=== PATIENT | male | born 1995 | race Caucasian/White ===

== ENCOUNTER 2020-03-27 11:45 | Emergency (ER) | payer OTHER, SELFPAY ==
[2020-03-27 11:55] VITALS: BP 138/95; PULSE 89; RESP 17; TEMP 37.3; O2SAT 96; BMI 36.8
--- NOTE | 2020-03-27 12:04 | ED.GENADULT ---
HPI - General Adult General Chief complaint: General Medical Stated complaint: ?STD Time Seen by Provider: 03/27/20 12:03 History of Present Illness HPI narrative: Patient has 2 complaints, 1 is a mild cough for 3 days without fever shortness of breath chills or sputum Second complaint is he has multiple sexual partners and wants to be tested for STDs but denies any symptoms, denies dysuria, sores, discharge and says he is not aware of any partner who is positive for any sexually transmitted disease Related Data Allergies Allergy/AdvReac Type Severity Reaction Status Date / Time No Known Allergies Allergy Verified 03/27/20 11:58 Review of Systems Review of Systems: Review of systems is positive for cough There is no shortness breath no fever no chills no sputum no sore throat no neck pain no chest pain no abdominal pain no nausea no vomiting no calf pain no leg swelling There is no dysuria, no frequency no burning with urination no discharge no genital lesions or sores no testicular swelling Yes all other systems are reviewed and are negative [facility] Past Medical History Source: nursing notes reviewed Medical History (Updated 03/27/20 @ 12:16 by BLANCA Martinez) No known health problems Social History Social History Advance Directives: No Advance Directives Information Provided: No Physical Exam Vital Signs: Vital Signs: Vital Signs Temp Pulse Resp BP Pulse Ox 03/27/20 11:55 99.1 F 89 17 138/95 H 96 Body Mass Index 36.8 General appearance is A&O x3, no acute distress Neck is supple Respiratory no acute respiratory distress The chest is clear to auscultation bilaterally with full symmetrical equal breath sounds, no adventitious sounds The heart is rate and rhythm regular with no murmurs Abdomen soft nontender Genital exam was deferred as he is asymptomatic Skin no rash Neuro no focal deficit Course Course Course Narrative: Patient was swabbed for COVID due to his cough and was tested for GC chlamydia and was advised to follow with clinic for HIV and any further testing Discharge Plan Discharge Clinical Impression: Acute viral syndrome Patient Disposition: Home, Self-Care Additional Instructions: We will call you with COVID testing results in 1-3 days Return any time any worse condition or concerns We will call you if gonorrhea or chlamydia tests are positive We advise follow with [facility] for further testing and HIV testing Interventions: ED Discharge Assessment Last Done: 03/27/20 12:40 Discharge Date/Time: 03/27/20 12:40
--- NOTE | 2020-03-27 12:10 | ED.GENADULT ---
HPI - General Adult General Chief complaint: General Medical Stated complaint: ?STD Time Seen by Provider: 03/27/20 12:03 History of Present Illness HPI narrative: Patient is here for 2 reasons 1st reason is of cough that started 3 days ago and is mild dry no sputum no shortness of breath no fever no chills Second complaint is STD screening test as he has had multiple partners and is concerned he may have been exposed to an STD but he has no symptoms and is not aware of any partner having an STD MD complaint: First complaint is cough for 3 days, 2nd complaint is wants STD testing Related Data Allergies Allergy/AdvReac Type Severity Reaction Status Date / Time No Known Allergies Allergy Verified 03/27/20 11:58 Review of Systems Review of Systems: Review of systems is positive for a mild cough There is no sputum no shortness of breath no chest pain no difficulty breathing no leg swelling no calf pain no abdominal pain no burning with urination no urinary symptoms no discharge no testicular swelling, no rash no sores no lesions Yes all other systems are reviewed and are negative [facility] Past Medical History Source: nursing notes reviewed Medical History (Updated 03/27/20 @ 12:16 by BLANCA Martinez) No known health problems Social History Social History Advance Directives: No Advance Directives Information Provided: No Physical Exam Vital Signs: Vital Signs: Vital Signs Temp Pulse Resp BP Pulse Ox 03/27/20 11:55 99.1 F 89 17 138/95 H 96 Body Mass Index 36.8 Patient is well appearing comfortable and in no distress Neck is supple Chest is CTA bilaterally, with full equal symmetrical breath sounds The heart no murmurs The abdomen soft nontender Genital exam was deferred Extremities full range of motion times for No rashes Course Course Course Narrative: COVID testing was done due to the cough and GC chlamydia testing was done as a screen and patient is advised to follow with [facility] for HIV and any further STD testing Discharge Plan Discharge Clinical Impression: Acute viral syndrome Patient Disposition: Home, Self-Care Additional Instructions: We will call you with COVID testing results in 1-3 days Return any time any worse condition or concerns We will call you if gonorrhea or chlamydia tests are positive We advise follow with [facility] for further testing and HIV testing Interventions: ED Discharge Assessment Last Done: 03/27/20 12:40 Discharge Date/Time: 03/27/20 12:40
[2020-03-27 15:29] LABS: CT PCR NOT DETECTED (Not Detect.)
[2020-03-27 15:30] LABS: NG PCR NOT DETECTED (Not Detect.)
== END 2020-03-27 12:40 | disposition home or self-care (01) ==
PROVIDERS: Physician Assistant Medical; Emergency Provider Emergency Medicine
DX: R05 Cough (principal); R50.9 Fever, unspecified; Z20.2 Contact with and (suspected) exposure to infections with a predominantly sexual mode of transmission; Z11.59 Encounter for screening for other viral diseases
CPT/HCPCS: 87491; 87591; 99283; U0003

== ENCOUNTER 2023-01-19 13:35 | Emergency (ER) | payer OTHER, SELFPAY ==
--- NOTE | ~2023-01-19 | XR_ITS ---
EXAMINATION: XR HAND, RIGHT CLINICAL INFORMATION: Laceration COMPARISON: None available. TECHNIQUE: PA, lateral, and oblique views of the right hand. FINDINGS: Bone alignment is normal. No acute fracture or dislocation. There may be old trauma to the base of the fifth metacarpal bone. Soft tissue foreign bodies adjacent to the base of the thumb/first webspace, largest measuring 2 x 5 mm. XR/XR hand RT min 3V IMPRESSION: Soft tissue foreign bodies at the base of the thumb/first web space, largest measuring 2 x 5 mm.
--- NOTE | ~2023-01-19 | XR_ITS ---
EXAMINATION: XR HAND, RIGHT CLINICAL INFORMATION: Concern for a foreign body. COMPARISON: None available. TECHNIQUE: PA, lateral, and oblique views of the right hand. FINDINGS: Linear radiopacity which is likely a foreign body in the soft tissues at the interspace between the thumb and the index finger just deep to the skin line. This measures 0.7 cm in length by about 1 mm in width. No acute osseous abnormality. Bone and joint are normal. Normal variant of negative ulnar variance. The ulna is shorter than the radius by about 3 mm. No impaction changes of the radial ulnar joint. XR/XR hand RT 2V IMPRESSION: 1. Linear radiopacity likely foreign body at the interspace between the thumb and index finger. 2. No acute osseous abnormality. 3. Negative ulnar variance.
--- NOTE | 2023-01-19 13:39 | ED.UPPEXIN ---
HPI - Extremity Injury (Upper) General Chief Complaint: Wound/Laceration Stated Complaint: DEEP LAC TO R HAND Time Seen by Provider: 01/19/23 13:38 Source: patient and EMS Mode of arrival: EMS Limitations: no limitations History of Present Illness HPI narrative: 27 yo right hand dominant male presents to the ER for evaluation of a deep laceration to his right hand sustained at work just [employer]. He went to go open a door, pushed against the glass and his hand went through the glass causing a deep laceration to the web space of the thumb and 1st digit. He immediately applied pressure with a bandage for bleeding. EMS was called. They report exposed fatty tissue and a deep laceration. He has full ROM of the thumb and 1st digit. No numbness or tingling. MD complaint: injury to: right and hand Onset (ago): minute(s) Other Extremity Injury: right: hand Other injuries: none Handedness: right Place: work Severity: moderate Relieving factors: immobilization Exacerbating factors: movement of extremity Context: direct blow Associated symptoms: denies other symptoms Treatments prior to arrival: bandage Related Data Previous Rx's Medication Instructions Recorded hydrocodone 5 mg-acetaminophen 325 2 tab PO TID PRN severe pain 01/19/23 mg tablet (scale score 7-10) #5 tabs ibuprofen 600 mg tablet 600 mg PO Q8H PRN pain #14 tabs 01/19/23 Allergies Allergy/AdvReac Type Severity Reaction Status Date / Time No Known Allergies Allergy Verified 03/27/20 11:58 Review of Systems Review of Systems: Yes all other systems are reviewed and are negative [facility] Past Medical History Medical History (Updated 01/19/23 @ 16:07 by BLANCA Hill) No known health problems Social History Social History Advance Directives: No Advance Directives Information Provided: No Physical Exam Vital Signs: Vital Signs: Last Vital Signs Temp 98 F 01/19/23 13:40 Pulse 81 01/19/23 13:40 Resp 19 01/19/23 13:40 BP 114/73 01/19/23 13:40 Pulse Ox 98 01/19/23 13:40 O2 Del Method Room Air 01/19/23 13:40 BMI result Body Mass Index 38.9 Appearance: Alert. Oriented X3. No acute distress. HEENT: normal inspection CVS: Normal heart rate and rhythm. Pulses normal. Respiratory: No respiratory distress. Skin: Skin warm and dry. Normal skin color. Normal skin turgor. No rashes. Extremities: right hand with a deep laceration of the web space of the thumb and 1st digit, approx 6 cm. exposed adipose tissue with oozing. normal thumb to finger adduction. normal ROM of the thumb and 1st digit. no visible tendon Neuro: Oriented X 3. No motor deficit. No sensory deficit. Medical Decision Making Medical Decision Making [facility] [place] Narrative: 27 y/o right hand Dominant male presents to the ER for evaluation of a deep in complex laceration of his right hand involving the webspace between the thumb and 1st digit. Active oozing on arrival. Fortunately does have full range of motion of the digits and tendons do not seem to be involved. No sensory deficits. X-ray shows small glass foreign body superficially. Wound was irrigated extensively with saline, no palpable or visible foreign body visualized. Wound required complex repair with absorbable sutures as well as 13 simple interrupted sutures. Unfortunately retained foreign body remained after extensive irrigation. Patient will be placed on prophylactic antibiotics. He will follow-up with orthopedics/hand. Pain control and wound care discussed with the patient. Dry sterile dressing applied. Stable for discharge home. Patient agrees with plan. Differential Diagnosis Differential Diagnoses: The differential diagnosis associated with the presentation includes superficial laceration, deep laceration, contaminated wound, open fracture, tendon laceration Independent Interpretation I performed an independent interpretation of an: Plain X-Ray Interpretation: X-rays of the hand review x2, no fracture, small superficial foreign body appreciated. Agrees radiologist read. Radiology Impression Discussion of test interpretation with radiology: I have reviewed the radiologist's reading. Radiologist Impression: EXAMINATION: XR HAND, RIGHT CLINICAL INFORMATION: Laceration? COMPARISON: None available.? TECHNIQUE: PA, lateral, and oblique views of the right hand. FINDINGS: Bone alignment is normal. No acute fracture or dislocation. There may be old trauma to the base of the fifth metacarpal bone. Soft tissue foreign bodies adjacent to the base of the thumb/first webspace, largest measuring 2 x 5 mm.? XR/XR hand RT min 3V IMPRESSION: Soft tissue foreign bodies at the base of the thumb/first web space, largest measuring 2 x 5 mm. External Record Review External record reviewed: Prior outpatient labs Prescription Management I considered prescription management with: Pain Medication and Antibiotic Procedures Laceration Laceration 1: Site: hand Side (If applicable): right Size (cm): 6 Description: linear and irregular Depth: involves muscle layer Local Anesthetic: lidocaine 1% Amount of anesthesia used (mL): 8 Pre-repair: wound explored, irrigated extensively and deep structures intact Skin layer closed with: nylon Size (cm): 5-0 Number of sutures: 13 Technique: simple, interrupted Subcutaneous layer closed with: chromic gut Size: 3-0 Number of sutures: 3 Technique: simple, interrupted Critical Care Time Critical Care Time Critical Care Time: No Discharge Plan Discharge Clinical Impression: Laceration Patient Disposition: Home, Self-Care Instructions: Laceration (DC) Additional Instructions: You will need your 13 stitches out in 8-10 days. See you doctor for this or come back to the ER and we will remove them. A small piece of glass remained in the wound, it is very superficial and may come out on its own. Do not get wet for 24 hours, after that you can briefly wash with soap and water then pat dry. Keep wound clean and covered. Change the dressing daily. When you are at home, allow open to air for a few hours per day. Do not submerge in water, no swimming. Take the prescribed antibiotics as directed, complete the entire course and do not miss any doses Follow up with Hand Specialist - call for an appointment. If you develop signs of infection including increased pain, swelling, redness or drainage of pus come back to the ER for further evaluation. Prescriptions: New hydrocodone-acetaminophen 5-325 mg tablet 2 tab PO TID PRN (Reason: severe pain (scale score 7-10)) Qty: 5 0RF Rx Instructions: Partial Fill upon patient request. ibuprofen 600 mg tablet 600 mg PO Q8H PRN (Reason: pain) Qty: 14 0RF [place] [facility] [place] [facility] [place] [facility] [facility] [place] Group[place] (right hand lac, retained FB) Interventions: ED Discharge Assessment Last Done: 01/19/23 16:13
[2023-01-19 13:40] VITALS: BP 114/73; BP 158/90; PULSE 81; PULSE 83; RESP 19; TEMP 36.6; O2SAT 100; O2SAT 98; BMI 38.9
== END 2023-01-19 16:14 | disposition home or self-care (01) ==
PROVIDERS: Emergency Provider Emergency Medicine Emergency Medical Services
DX: S61.411A Laceration without foreign body of right hand, initial encounter (principal); M79.641 Pain in right hand; W26.9XXA Contact with unspecified sharp object(s), initial encounter; Y93.9 Activity, unspecified; Y92.9 Unspecified place or not applicable; Y99.0 Civilian activity done for income or pay
CPT/HCPCS: 12042; 73120; 73130; 99282; 99283